=== PATIENT | female | born 2000 | race Caucasian/White ===

== ENCOUNTER 2019-02-08 21:20 | Emergency (ER) | payer OTHER ==
[~2019-02-08] VITALS: Ht 167.6 cm; Wt 54.4 kg
--- NOTE | 2019-02-08 21:28 | ED.ADGEN ---
Adult General Chief Complaint Chief Complaint ".. I got kicked by '[employer] [place]'.. my mustang horse.. 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 leg injury. Pt. has 2 cm laceration lt. conte. Pt. is ambulatory. Up-to-date with vaccinations. No recent travel. This neurovascular intact. Review of Systems Review of Systems Constitutional: Denies fever or chills [] Eyes: Denies change in visual acuity, redness, or eye pain [] HENT: Denies nasal congestion or sore throat [] Respiratory: Denies cough or shortness of breath [] Cardiovascular: No additional information not addressed in HPI [] GI: Denies abdominal pain, nausea, vomiting, bloody stools or diarrhea [] : Denies dysuria or hematuria [] Musculoskeletal: Denies back pain or joint pain [. Except]complains of left leg laceration and contusion Integument: Denies rash or skin lesions [] Neurologic: Denies headache, focal weakness or sensory changes [] Endocrine: Denies polyuria or polydipsia [] All other systems were reviewed and found to be within normal limits, except as documented in this note. Family History Family History Noncontributory Current Medications Current Medications Current Medications Medications (Trade) Dose Ordered Sig/Nancy Start Time Stop Time Status Last Admin Dose Admin Bacitracin (Bacitracin Topical Pkt) 1 pkt 1X ONCE 02/08/19 22:00 02/08/19 22:01 DC Ceftriaxone Sodium (Rocephin Im) 1 gm 1X ONCE 02/08/19 22:45 02/08/19 22:46 DC 02/08/19 22:53 1 GM Ceftriaxone Sodium (Rocephin) 1 gm STK-MED ONCE 02/08/19 22:40 02/08/19 22:41 DC Hydrocodone Bitartrate/ Ibuprofen (Vicoprofen 7.5-200) 2 tab 1X ONCE 02/08/19 22:45 02/08/19 22:46 DC 02/08/19 22:59 2 TAB Lidocaine HCl 20 ml 1X ONCE 02/08/19 22:00 02/08/19 22:01 DC 02/08/19 22:05 20 ML Allergies Allergies Allergies Coded Allergies Type Severity Reaction Last Updated Verified No Known Drug Allergies 02/08/19 No Physical Exam Physical Exam Constitutional: Well developed, well nourished, no acute distress, non-toxic appearance. [] HENT: Normocephalic, atraumatic, bilateral external ears normal, oropharynx moist, no oral exudates, nose normal. [] Eyes: PERRLA, EOMI, conjunctiva normal, no discharge. [] Neck: Normal range of motion, no tenderness, supple, no stridor. [] Cardiovascular:Heart rate regular rhythm, no murmur [] Lungs & Thorax: Bilateral breath sounds clear to auscultation [] Abdomen: Bowel sounds normal, soft, no tenderness, no masses, no pulsatile masses. [] Skin: Warm, dry, no erythema, no rash. [] Back: No tenderness, no CVA tenderness. [] Extremities: No tenderness, no cyanosis, no clubbing, ROM intact, no edema. [] Except findings left leg laceration and contusion Neurologic: Alert and oriented X 3, normal motor function, normal sensory function, no focal deficits noted. [] Psychologic: Affect normal, judgement normal, mood normal. [] Current Patient Data Vital Signs Vital Signs Date Time Temp Pulse Resp B/P (MAP) Pulse Ox O2 Delivery O2 Flow Rate FiO2 02/08/19 22:46 98.2 81 18 155/77 (103) 98 Room Air Lab Results Laboratory Tests Test 02/08/19 21:34 02/08/19 21:50 Urine Collection Type Unknown Urine Color Yellow Urine Clarity Hazy Urine pH 6.0 Urine Specific [place] >=1.030 Urine Protein Neg (NEG-TRACE) Urine Glucose (UA) Neg mg/dL (NEG) Urine Ketones (Stick) Neg mg/dL (NEG) Urine Blood Trace (NEG) Urine Nitrite Neg (NEG) Urine Bilirubin Neg (NEG) Urine Urobilinogen Dipstick 0.2 mg/dL (0.2 mg/dL) Urine Leukocyte Esterase Neg (NEG) Urine RBC Rare /HPF (0-2) Urine WBC 1-4 /HPF (0-4) Urine Squamous Epithelial Cells Many /LPF Urine Bacteria Mod /HPF (0-FEW) Urine Mucus Marked /LPF POC Urine HCG, Qualitative hcg negative (Negative) Microbiology 02/08/19 Urine Culture - Final, Complete 02/08/19 Urine Culture Result 1 (TONIA) - Final, Complete EKG EKG [] Radiology/Procedures Radiology/Procedures I interpretation x-ray shows no bony change. Some localized edema obvious laceration[]. See formal report when available Course & Med Decision Making Course & Med Decision Making Pertinent Labs and Imaging studies reviewed. (See chart for details) Procedure note- suture repair- laceration cleaned. Injected edge laceration with lidocaine. Reirrigated and scrubbed laceration site. Irrigated extensively in range of motion. Placed into Vicryl 30 sutures deep. Staple �5 exterior. Dressing applied. Patient apply Polysporin 4 times a day. Patient keep laceration clean and dry. Patient take Keflex 500 mg 3 times a day. Edilson be removed in 10 days. Patient monitor closely for infection. Patient return if any concerns. [] Final Impression Final Impression 1. Contusion 2. Laceration[]-2 cm laceration Dragon Disclaimer Dragon Disclaimer This electronic medical record was generated, in whole or in part, using a voice recognition dictation system. Dragon Disclaimer This chart was dictated in whole or in part using Voice Recognition software in a busy, high-work load, and often noisy Emergency Department environment. It may contain unintended and wholly unrecognized errors or omissions. SHAWNA RAMIREZ MD Feb 08, 2019 21:28
[2019-02-08] MEDS ORDERED: BACITRACIN ZINC TOPICAL OINT PACKET. TP ONE (22:00)
[2019-02-08] MEDS ORDERED: LIDOCAINE 2% 20 ML VIAL. IJ ONE (22:00)
[2019-02-08 22:18] LABS: BILIRUBIN,URINE NEG (NEG); CLARITY,URINE HAZY; COLOR,URINE YELLOW; GLUCOSE,URINE NEG (NEG)
[2019-02-08 22:19] LABS: BACTERIA,URINE MOD /HPF (0-FEW); NITRITE,URINE NEG (NEG); RBC,URINE RARE /HPF (0-2); SQUAMOUS EPITHELIAL CELL,UR MANY /LPF; UROBILINOGEN,URINE 0.2 mg/dL (0.2 mg/dL)
[2019-02-08] MEDS ORDERED: HYDR-1179 PO (22:37)
[2019-02-08] MEDS ORDERED: CEPH-264 PO (22:37)
[2019-02-08] MEDS ORDERED: cefTRIAXone SODIUM 1 GM VIAL ONE (22:40)
[2019-02-08] MEDS ORDERED: BACI28.34 TP (22:40)
[2019-02-08] MEDS ORDERED: HYDROcodon/IBUPROFEN 7.5/200MG 1 TAB TABLET PO ONE (22:45)
[2019-02-08] MEDS ORDERED: cefTRIAXone IM 1 GM VIAL IM ONE (22:45)
[2019-02-08 22:46] VITALS: BP 155/77
--- NOTE | 2019-02-09 09:27 | RAD ---
TIBIA FIBULA LEFT History: Kicked by horse in anterior lower leg. Laceration below knee. Technique: 2 views left tibia and fibula. Comparison: None. Findings: Normal alignment. No fracture. Laceration overlying the anterior proximal tibia. Impression: 1. No acute osseous abnormality. 2. Laceration overlying the anterior proximal tibia. Electronically signed by: Kwame Martin DO (02/09/2019 9:23 AM) [id number]
== END 2019-02-08 23:04 | disposition home or self-care (01) ==
LOC: ER 21:20
DX: S81.822A Laceration with foreign body, left lower leg, initial encounter (principal); W55.12XA Struck by horse, initial encounter; Y93.89 Activity, other specified; Y92.89 Other specified places as the place of occurrence of the external cause; Y99.8 Other external cause status
CPT/HCPCS: 12001; 73590; 81001; 81025; 87086; 96372; 99285; J0696; J2001

== ENCOUNTER 2019-11-07 15:10 | Emergency (ER) | payer OTHER ==
[~2019-11-07] VITALS: Ht 167.6 cm; Wt 53.3 kg
[~2019-11-07 15:10] MED LIST: BACI28.34 TP; CEPH-264 PO; HYDR-1179 PO
[2019-11-07 15:24] VITALS: BP 126/79
[2019-11-07] MEDS ORDERED: DOXY100C2 PO (15:28)
--- NOTE | 2019-11-07 15:28 | PHYS DOC ---
Past History Past Medical History: No Pertinent History Past Surgical History: No Surgical History Smoking: Non-smoker Alcohol Use: None Drug Use: None General Adult EDM: Chief Complaint: INSECT BITE HPI: HPI: 19-year-old female presents with report of tick bite to left groin 4 days ago. Reports was able to remove tick with head intact. Reports now with swelling and redness to groin. Reports swollen lymph node to that area. Denies fever or chills. Denies . Reports last menstrual period was a few weeks ago. Reports history of pronounced reactions to any insect bite/sting (ie sensitivity). Review of Systems: Review of Systems: Constitutional: Denies fever or chills Eyes: Denies redness or eye pain HENT: Denies nasal congestion or sore throat Respiratory: Denies cough or shortness of breath Cardiovascular: Denies chest pain or palpitations GI: Denies abdominal pain, nausea, or vomiting : Denies dysuria or hematuria Musculoskeletal: Denies back pain or joint pain Integument: Reports rash and swelling to left groin status post tick bite Neurologic: Denies headache, focal weakness or sensory changes Complete systems were reviewed and found to be within normal limits, except as documented in this note. Allergies: Allergies: Allergies Coded Allergies Type Severity Reaction Last Updated Verified No Known Drug Allergies 02/08/19 No Physical Exam: PE: Constitutional: Well developed, well nourished, no acute distress, non-toxic appearance HENT: Normocephalic, atraumatic, oropharynx moist Eyes: Conjunctiva normal, no discharge Neck: Normal range of motion, no tenderness, supple Lungs & Thorax: No respiratory distress, equal chest rise and fall Skin: Warm, dry, erythema to left anterior groin, no central clearing, no induration or fluctuance Extremities: No tenderness, ROM intact, no edema, left femoral lymphadenopathy Neurologic: Alert and oriented X 3, no focal deficits noted Psychologic: Affect normal, judgment normal EKG: EKG: [] Radiology/Procedures: Radiology/Procedures: [] Course & Med Decision Making: Course & Med Decision Making Patient presents with erythematous rash and swelling with lymphadenopathy status post tick bite to left groin. Afebrile. Symptomatic treatment provided with o ral steroid. Empiric antibiotic with doxycycline initiated. Patient stable for discharge with outpatient follow-up with PCP. Discussed findings and plan with patient, who acknowledges understanding and agreement. [place] Disclaimer: [place] Disclaimer: This electronic medical record was generated, in whole or in part, using a voice recognition dictation system. Departure Departure: Impression: Primary Impression: Tick bite Qualified Codes: W57.XXXA - Bitten or stung by nonvenomous insect and other nonvenomous arthropods, initial encounter Disposition: HOME, SELF-CARE Condition: STABLE Referrals: DURGA ALAMO MD (PCP) Patient Instructions: Insect Bite, [id number], Wood Tick Bite, [id number] Additional Instructions: May use over the counter Benadryl for any itching or continued swelling. Scripts Doxycycline Hyclate (DOXYCYCLINE HYCLATE) 100 Mg Capsule 1 CAP PO BID for Infection , #28 CAP Prov: ABHILASH MENDEZ DO 11/07/19 ABHILASH MENDEZ DO November 07, 2019 15:28
[2019-11-07] MEDS ORDERED: DOXYCYCLINE HYCLATE 100 MG TABLET PO ONE (15:30)
[2019-11-07] MEDS ORDERED: DEXAMETHASONE 4 MG TABLET PO ONE (15:30)
== END 2019-11-07 15:36 | disposition home or self-care (01) ==
LOC: ER 15:10
DX: S30.861A Insect bite (nonvenomous) of abdominal wall, initial encounter (principal); W57.XXXA Bitten or stung by nonvenomous insect and other nonvenomous arthropods, initial encounter; Y93.89 Activity, other specified; Y92.89 Other specified places as the place of occurrence of the external cause; Y99.8 Other external cause status
CPT/HCPCS: 99284; J8540

== ENCOUNTER 2020-01-25 19:29 | Emergency (ER) | payer OTHER ==
[~2020-01-25] VITALS: Ht 167.6 cm; Wt 53.3 kg
[~2020-01-25 19:29] MED LIST changes: +DOXY100C2 PO
[2020-01-25 20:14] VITALS: BP 118/66
--- NOTE | 2020-01-25 20:21 | PHYS DOC ---
Past History Past Medical History: No Pertinent History Past Surgical History: No Surgical History Smoking: Non-smoker Alcohol Use: None Drug Use: None General Adult EDM: Chief Complaint: LACERATION/AVULSION HPI: HPI: 19-year-old female presents with head laceration. She is in the . The patient was practicing combatives with a friend and she went down and hit a dresser on the way to the ground. It lacerated the top of her scalp. She was able to get stop bleeding, but looked like it probably needed stitches or lorri. Her tetanus is up-to-date. She denies any other concerns or complaints. This was an accidental injury not an attack. Review of Systems: Review of Systems: Constitutional: Denies fever or chills Eyes: Denies change in visual acuity HENT: Denies nasal congestion or sore throat Respiratory: Denies cough or shortness of breath Cardiovascular: Denies chest pain or edema GI: Denies abdominal pain, nausea, vomiting, bloody stools or diarrhea : Denies dysuria Musculoskeletal: Denies back pain or joint pain Integument: 2.5 cm laceration of the scalp Neurologic: Denies headache, focal weakness or sensory changes Endocrine: Denies polyuria or polydipsia Lymphatic: Denies swollen glands Psychiatric: Denies depression or anxiety Heart Score: Risk Factors: Risk Factors: DM, Current or recent (<one month) smoker, HTN, HLP, family history of CAD, obesity. Risk Scores: Score 0 - 3: 2.5% MACE over next 6 weeks - Discharge Home Score 4 - 6: 20.3% MACE over next 6 weeks - Admit for Clinical Observation Score 7 - 10: 72.7% MACE over next 6 weeks - Early Invasive Strategies Allergies: Allergies: Allergies Coded Allergies Type Severity Reaction Last Updated Verified No Known Drug Allergies 02/08/19 No Physical Exam: PE: Constitutional: Well developed, well nourished, no acute distress, non-toxic appearance. [] HENT: Normocephalic, atraumatic, bilateral external ears normal, oropharynx moist, no oral exudates, nose normal. [] Eyes: PERRLA, EOMI, conjunctiva normal, no discharge. [] Neck: Normal range of motion, no tenderness, supple, no stridor. [] Cardiovascular:Heart rate regular rhythm, no murmur [] Lungs & Thorax: Bilateral breath sounds clear to auscultation [] Abdomen: Bowel sounds normal, soft, no tenderness, no masses, no pulsatile masses. [] Skin: 2.5 cm linear laceration of the superior scalp [] Back: No tenderness, no CVA tenderness. [] Extremities: No tenderness, no cyanosis, no clubbing, ROM intact, no edema. [] Neurologic: Alert and oriented X 3, normal motor function, normal sensory function, no focal deficits noted. [] Psychologic: Affect normal, judgement normal, mood normal. [] EKG: EKG: [] Radiology/Procedures: Radiology/Procedures: [] Course & Med Decision Making: Course & Med Decision Making Pertinent Labs and Imaging studies reviewed. (See chart for details) The patient's tetanus is up-to-date. I repaired the laceration with lorri. See note below for details. She will follow-up for removal in 7 days. She is stable for discharge at this time. [] Dragon Disclaimer: Dragon Disclaimer: This electronic medical record was generated, in whole or in part, using a voice recognition dictation system. Laceration Repair Lac Repair Indication: [] 2.5 cm linear laceration of the right superior scalp Procedure: I obtained verbal consent from the patient for staple repair of her scalp laceration. The wound was thoroughly irrigated and cleaned with saline under pressure. No foreign bodies were found. No anesthesia was used. I repaired the wound with 3 lorri. Total repaired wound length: 2.5 cm Other Items: None The patient tolerated the procedure well Complications: None. Departure Departure: Impression: Primary Impression: Scalp laceration Qualified Codes: S01.01XA - Laceration without foreign body of scalp, initial encounter Disposition: HOME/RESIDENCE PRIOR TO ADM Condition: IMPROVED Referrals: DURGA ALAMO MD (PCP) Patient Instructions: Staple Wound Closure, [id number] Justification of Admission: Justification of Admission: Justification of Admission Dx: N/A BRITTNEE RODRIGUEZ DO Jan 25, 2020 20:21
== END 2020-01-25 20:33 | disposition home or self-care (01) ==
LOC: ER 19:29
DX: S01.01XA Laceration without foreign body of scalp, initial encounter (principal); W22.8XXA Striking against or struck by other objects, initial encounter; Y93.89 Activity, other specified; Y92.89 Other specified places as the place of occurrence of the external cause; Y99.8 Other external cause status
CPT/HCPCS: 12001; 99282